=== PATIENT | male | born 1950 | race Two or more races ===

== ENCOUNTER 2017-12-29 08:53 | Outpatient (CLI) | payer OTHER ==
[~2017-12-29] VITALS: Ht 152.4 cm; Wt 95.3 kg
== END 2017-12-29 09:15 | disposition home or self-care (01) ==
LOC: OFIC 805 08:53
DX: H60.8X3 Other otitis externa, bilateral (principal); H90.3 Sensorineural hearing loss, bilateral; J31.0 Chronic rhinitis; J34.3 Hypertrophy of nasal turbinates

== ENCOUNTER 2017-12-29 11:55 | Outpatient (CLI) | payer OTHER | END 2017-12-29 16:00 | disposition home or self-care (01) | LOC: TOM 11:55 | DX: J32.8 Other chronic sinusitis (principal); J31.0 Chronic rhinitis; J34.2 Deviated nasal septum; J34.3 Hypertrophy of nasal turbinates ==

== ENCOUNTER 2018-03-16 08:12 | Outpatient (CLI) | payer OTHER ==
[~2018-03-16] VITALS: Ht 152.4 cm; Wt 95.3 kg
== END 2018-03-16 08:30 | disposition home or self-care (01) ==
LOC: OFIC 805 08:12
DX: J31.0 Chronic rhinitis (principal); H90.3 Sensorineural hearing loss, bilateral; R42 Dizziness and giddiness; H60.593 Other noninfective acute otitis externa, bilateral

== ENCOUNTER 2019-01-28 14:06 | Outpatient (CLI) | payer OTHER ==
[~2019-01-28] VITALS: Ht 167.6 cm; Wt 90.7 kg
== END 2019-01-28 14:20 | disposition home or self-care (01) ==
LOC: OFIC 805 14:06
DX: H69.90 Unspecified Eustachian tube disorder, unspecified ear (principal); R22.1 Localized swelling, mass and lump, neck; H93.90 Unspecified disorder of ear, unspecified ear

== ENCOUNTER 2019-03-21 13:29 | Outpatient (CLI) | payer OTHER ==
[~2019-03-21] VITALS: Ht 152.4 cm; Wt 90.7 kg
== END 2019-03-21 13:50 | disposition home or self-care (01) ==
LOC: OFIC 805 13:29
DX: H92.09 Otalgia, unspecified ear (principal); H69.90 Unspecified Eustachian tube disorder, unspecified ear; H81.49 Vertigo of central origin, unspecified ear

== ENCOUNTER 2020-04-13 11:52 | Outpatient (CLI) | payer OTHER ==
[2020-04-16] MEDS ORDERED: ATORVASTATIN CA10 MG PO (10:35)
[2020-04-16] MEDS ORDERED: MONTELUKAST SOD10 MG PO (10:35)
[2020-04-16] MEDS ORDERED: SYNTHROID125 MCG PO (10:35)
[2020-04-16] MEDS ORDERED: ASPIR 8181 MG PO (10:35)
[2020-04-16] MEDS ORDERED: TAMS0.4C PO (10:36)
[2020-04-16] MEDS ORDERED: VITAMIN C500 M6 PO (10:37)
[2020-04-16] MEDS ORDERED: MAXIMUM D3325 MCG PO (10:37)
[2020-04-16] MEDS ORDERED: CENTRUM MEN'S1 EACH PO (10:37)
== END 2020-04-13 19:20 | disposition home or self-care (01) ==
LOC: OFIC 805 11:52
PROVIDERS: ATTEND Otolaryngology
DX: K13.21 Leukoplakia of oral mucosa, including tongue (principal)

== ENCOUNTER 2020-04-20 07:35 | Day surgery (SDC) | payer OTHER ==
[~2020-04-20 07:35] MED LIST: ASPIR 8181 MG PO; ATORVASTATIN CA10 MG PO; CENTRUM MEN'S1 EACH PO; MAXIMUM D3325 MCG PO; MONTELUKAST SOD10 MG PO; SYNTHROID125 MCG PO; TAMS0.4C PO; VITAMIN C500 M6 PO
== END 2020-04-20 13:30 | disposition home or self-care (01) ==
LOC: CIR.AMB 07:35
PROVIDERS: ATTEND Otolaryngology
DX: K13.21 Leukoplakia of oral mucosa, including tongue (principal); L43.8 Other lichen planus; Z20.828 Contact with and (suspected) exposure to other viral communicable diseases

== ENCOUNTER 2020-05-22 10:07 | Outpatient (CLI) | payer OTHER | END 2020-05-22 11:00 | disposition home or self-care (01) | LOC: OFIC 805 10:07 | PROVIDERS: ATTEND Otolaryngology | DX: K13.21 Leukoplakia of oral mucosa, including tongue (principal) ==

== ENCOUNTER → 2020-08-27 | Outpatient (CLI) | payer OTHER | END | disposition home or self-care (01) | LOC: OFIC 805 09:30 | PROVIDERS: ATTEND Otolaryngology | DX: L29.8 Other pruritus (principal); K13.21 Leukoplakia of oral mucosa, including tongue ==

== ENCOUNTER 2021-01-14 09:15 | Outpatient (CLI) | payer OTHER | END 2021-01-14 10:26 | disposition home or self-care (01) | LOC: OFIC 805 09:15 | PROVIDERS: ATTEND Otolaryngology | DX: Q17.8 Other specified congenital malformations of ear (principal); H93.8X3 Other specified disorders of ear, bilateral; R42 Dizziness and giddiness; L29.8 Other pruritus; K13.21 Leukoplakia of oral mucosa, including tongue; H61.23 Impacted cerumen, bilateral ==